=== PATIENT | male | born 1990 | race Two or more races ===

== ENCOUNTER 2018-03-16 07:33 | Emergency (ER) | payer MEDICAID ==
[~2018-03-16] VITALS: Ht 185.4 cm; Wt 59.0 kg
[2018-03-16 08:11] VITALS: BP 111/72
[2018-03-16] MEDS ORDERED: HYDROcodone-ACET 10/325MG TAB PO ONE (09:00)
[2018-03-16] MEDS ORDERED: KETOROLAC TROMETH 60MG/2ML VIAL IM ONE (09:00)
== END 2018-03-16 09:24 | disposition home or self-care (01) ==
LOC: ER 07:36
DX: S52.125A Nondisplaced fracture of head of left radius, initial encounter for closed fracture (principal); Y04.2XXA Assault by strike against or bumped into by another person, initial encounter; Y93.89 Activity, other specified; Y92.89 Other specified places as the place of occurrence of the external cause; Y99.8 Other external cause status
CPT/HCPCS: 29105; 73080; 73090; 96372; 99284; J1885

== ENCOUNTER 2023-08-03 16:01 | Emergency (ER) | payer SELFPAY ==
[~2023-08-03] VITALS: Ht 185.4 cm; Wt 86.5 kg
[~2023-08-03 16:01] MED LIST: GABA-1308 PO; IBUP-1455 PO
[2023-08-03 19:01] VITALS: TEMP 97.8
[2023-08-04 05:20] VITALS: BP 128/84; PULSE 94; RESP 16; O2SAT 97
[2023-08-05] MEDS ORDERED: ESCI20TA PO (23:34)
== END 2023-08-04 18:21 | disposition home or self-care (01) ==
LOC: ER 16:01
DX: Z09 Encounter for follow-up examination after completed treatment for conditions other than malignant neoplasm (principal); Z59.02 Unsheltered homelessness; Z79.899 Other long term (current) drug therapy

== ENCOUNTER 2023-08-05 09:54 | Emergency (ER) | payer SELFPAY ==
[~2023-08-05] VITALS: Ht 185.4 cm; Wt 86.3 kg
[2023-08-05 10:28] LABS: Basophils # (auto) 0 10 ^3/uL (0-0.2); Basophils % (auto) 0.8 % (0.0-2.0); Eosinophils # (auto) 0 10 ^3/uL (0-0.8); Eosinophils % (auto) 0.6 % (0.0-7.0); Hematocrit 41.2 % (41.0-53.0); Hemoglobin 13.7 g/dL (13.5-17.5); Lymphocytes # (auto) 1.2 10 ^3/uL (0.4-5.4); Lymphocytes % (auto) 19.9 % (10.0-50.0); Mean Corpuscular Hemoglobin 30.6 pg (28.0-32.0); Mean Corpuscular Hgb Conc. 33.3 g/dL (32.0-36.0); Mean Corpuscular Volume 91.7 fL (80.0-100.0); Monocytes # (auto) 0.6 10 ^3/uL (0-1.3); Monocytes % (auto) 10.2 % (0.0-12.0); Neutrophils # (auto) 4.1 10 ^3/uL (1.6-8.6); Neutrophils % (auto) 68.5 % (37.0-80.0); Nucleated Red Blood Cells % 0.2 %; Red Blood Cells 4.49 10^6/uL (4.5-5.90); Red Cell Distribution Width 12.9 % (11.8-14.3); White Blood Cell 5.9 10^3/uL (4.4-10.8)
[2023-08-05 10:57] LABS: Alanine Aminotransferase 64 U/L (7-40); Albumin 4.6 g/dL (3.2-4.8); Alkaline Phosphatase 63 U/L (46-116); Anion Gap 6 (5-15); Aspartate Aminotransferase 30 U/L (13-40); BUN/Creatinine Ratio 6.6 (10.0-20.0); Bilirubin, Total 0.7 mg/dL (0.2-1.0); Blood Urea Nitrogen 5 mg/dL (9-23); Calcium 9.7 mg/dL (8.5-10.1); Carbon Dioxide 26 mmol/L (20-30); Chloride 108 mmol/L (98-107); Glucose 103 mg/dL (74-106); Potassium 3.6 mmol/L (3.5-5.1); Sodium 140 mmol/L (136-145); Total Protein 7.1 g/dL (5.7-8.2)
[2023-08-05] MEDS ORDERED: SODIUM CHLORIDE 0.9% 1,000 ML IV ONE ×2 (11:30→12:30)
[2023-08-05 11:34] VITALS: PULSE 111
[2023-08-05] MEDS ORDERED: LORazepam 2MG/ML-1ML VIAL IV ONE (12:30)
[2023-08-05] MEDS ORDERED: IOHEXOL 350 MG/ML 100ML IJ ONE (12:44)
[2023-08-05 14:30] VITALS: BP 143/98
[2023-08-05 15:37] VITALS: PULSE 106; RESP 20; O2SAT 96
[2023-08-05] MEDS ORDERED: ESCI20TA PO (23:34)
== END 2023-08-05 15:18 | disposition left against medical advice (07) ==
LOC: ER 09:54
DX: R00.0 Tachycardia, unspecified (principal); R00.2 Palpitations; Z53.29 Procedure and treatment not carried out because of patient's decision for other reasons; Z79.899 Other long term (current) drug therapy
CPT/HCPCS: 36415; 80053; 83735; 84484; 85025; 85379; 93005; 96361; 96374; 99285; J2060; J7030

== ENCOUNTER 2023-08-05 17:41 | Emergency (ER) | payer SELFPAY ==
[~2023-08-05] VITALS: Ht 185.4 cm; Wt 81.4 kg
[2023-08-05 18:40] VITALS: BP 128/73; PULSE 110; RESP 16; O2SAT 98
[2023-08-05] MEDS ORDERED: KETOROLAC TROMETH 60MG/2ML VIAL IM ONE (19:00)
[2023-08-05] MEDS ORDERED: ESCI20TA PO (23:34)
== END 2023-08-05 19:27 | disposition home or self-care (01) ==
LOC: ER 17:41
DX: G62.9 Polyneuropathy, unspecified (principal); Z59.00 Homelessness unspecified; Z79.899 Other long term (current) drug therapy
CPT/HCPCS: 96372; 99283; J1885

== ENCOUNTER 2023-08-05 22:30 | Emergency (ER) | payer MEDICAID ==
[~2023-08-05] VITALS: Ht 185.4 cm; Wt 82.8 kg
[2023-08-05 22:56] VITALS: BP 118/77; RESP 16; O2SAT 98
[2023-08-05] MEDS ORDERED: LORazepam 0.5 MG TAB PO ONE (23:15)
[2023-08-05 23:26] VITALS: PULSE 116
[2023-08-05] MEDS ORDERED: ESCI20TA PO (23:34)
== END 2023-08-06 | disposition home or self-care (01) ==
LOC: ER 22:30
DX: F41.9 Anxiety disorder, unspecified (principal); R07.9 Chest pain, unspecified
CPT/HCPCS: 93005

== ENCOUNTER 2023-08-06 09:46 | Emergency (ER) | payer MEDICAID ==
[~2023-08-06] VITALS: Ht 185.4 cm; Wt 85.5 kg
[~2023-08-06 09:46] MED LIST changes: +ESCI20TA PO
[2023-08-06 12:24] VITALS: BP 118/50; PULSE 90; RESP 18; TEMP 98.7; O2SAT 97
[2023-08-06] MEDS ORDERED: diphenhdrAMINE HCL 25 MG CAP PO ONE (12:45)
== END 2023-08-06 12:53 | disposition home or self-care (01) ==
LOC: ER 09:46
DX: T78.40XA Allergy, unspecified, initial encounter (principal); Z79.1 Long term (current) use of non-steroidal anti-inflammatories (NSAID); Z79.899 Other long term (current) drug therapy; Y92.89 Other specified places as the place of occurrence of the external cause

== ENCOUNTER 2024-02-18 21:22 | Inpatient (IN) | payer MEDICAID ==
[~2024-02-18] VITALS: Ht 185.4 cm; Wt 83.7 kg
[2024-02-18 22:01] LABS: Basophils # (auto) 0 10 ^3/uL (0-0.2); Basophils % (auto) 0.3 % (0.0-2.0); Eosinophils # (auto) 0 10 ^3/uL (0-0.8); Eosinophils % (auto) 0.1 % (0.0-7.0); Hematocrit 44.4 % (41.0-53.0); Hemoglobin 15.2 g/dL (13.5-17.5); Lymphocytes # (auto) 1.2 10 ^3/uL (0.4-5.4); Lymphocytes % (auto) 11.5 % (10.0-50.0); Mean Corpuscular Hemoglobin 31.5 pg (28.0-32.0); Mean Corpuscular Hgb Conc. 34.2 g/dL (32.0-36.0); Monocytes # (auto) 0.6 10 ^3/uL (0-1.3); Monocytes % (auto) 5.9 % (0.0-12.0); Neutrophils # (auto) 8.6 10 ^3/uL (1.6-8.6); Neutrophils % (auto) 82.2 % (37.0-80.0); Nucleated Red Blood Cells % 0.1 %; Red Blood Cells 4.82 10^6/uL (4.5-5.90); Red Cell Distribution Width 13.6 % (11.8-14.3); White Blood Cell 10.5 10^3/uL (4.4-10.8)
[2024-02-18] MEDS: hydrOXYzine 25 MG TAB or CAP PO ONE (22:20)
[2024-02-18 22:23] LABS: INR 1.07 (0.9-1.15); Partial Thromboplastin Time 24.1 SEC (24.5-34.5); Prothrombin Time 11.3 sec (9.3-11.8)
[2024-02-18 22:25] LABS: Alanine Aminotransferase 23 U/L (7-40); Albumin 4.9 g/dL (3.2-4.8); Alkaline Phosphatase 56 U/L (46-116); Anion Gap 14 (5-15); Aspartate Aminotransferase 18 U/L (13-40); BUN/Creatinine Ratio 9.2 (10.0-20.0); Bilirubin, Total 0.5 mg/dL (0.2-1.0); Blood Urea Nitrogen 11 mg/dL (9-23); Calcium 9.6 mg/dL (8.7-10.4); Carbon Dioxide 19 mmol/L (20-30); Chloride 117 mmol/L (98-107); Glucose 117 mg/dL (74-106); Magnesium 1.8 mg/dL (1.6-2.6); Potassium 4.2 mmol/L (3.5-5.1); Sodium 150 mmol/L (136-145); Total Protein 7.3 g/dL (5.7-8.2)
[2024-02-19] MEDS: LABETALOL HCL 20 MG/4 ML VL IV ONE ×2 (01:56→02:28)
[2024-02-19] MEDS ORDERED: HYDROcodone-ACET 5/325MG TAB PO PRN (02:30)
[2024-02-19] MEDS ORDERED: ACETAMINOPHEN 325 MG TAB PO PRN (02:30)
[2024-02-19] MEDS ORDERED: ONDANSETRON HCL 4 MG/2 ML VIAL IV PRN (02:30)
[2024-02-19] MEDS ORDERED: METOPROLOL TARTRATE 1MG/1ML-5ML VIAL IV PRN (02:30)
[2024-02-19] MEDS ORDERED: ALPRAZolam 0.5 MG TAB PO PRN (02:30)
[2024-02-19] MEDS ORDERED: DOCUSATE SOD 100 MG CAP PO PRN (02:30)
[2024-02-19] MEDS ORDERED: NITROGLYCERIN 0.4 MG SL TAB SL PRN (02:45)
[2024-02-19] MEDS: LACTATED RINGER'S 1,000 ML IV SCH (02:50)
[2024-02-19] MEDS: ALPRAZolam 0.5 MG TAB PO ONE (03:07)
[2024-02-19 03:51] LABS: Basophils # (auto) 0.1 10 ^3/uL (0-0.2); Basophils % (auto) 0.7 % (0.0-2.0); Eosinophils # (auto) 0 10 ^3/uL (0-0.8); Hemoglobin 15.1 g/dL (13.5-17.5); Lymphocytes # (auto) 1.4 10 ^3/uL (0.4-5.4); Lymphocytes % (auto) 13.4 % (10.0-50.0); Mean Corpuscular Hemoglobin 32.1 pg (28.0-32.0); Mean Corpuscular Hgb Conc. 34.4 g/dL (32.0-36.0); Mean Corpuscular Volume 93.2 fL (80.0-100.0); Monocytes # (auto) 0.8 10 ^3/uL (0-1.3); Monocytes % (auto) 7.6 % (0.0-12.0); Neutrophils % (auto) 78.3 % (37.0-80.0); Nucleated Red Blood Cells % 0.1 %; Red Blood Cells 4.72 10^6/uL (4.5-5.90); Red Cell Distribution Width 13.8 % (11.8-14.3); White Blood Cell 10.2 10^3/uL (4.4-10.8)
[2024-02-19 04:22] LABS: Alanine Aminotransferase 22 U/L (7-40); Albumin 4.8 g/dL (3.2-4.8); Alkaline Phosphatase 54 U/L (46-116); Anion Gap 12 (5-15); Aspartate Aminotransferase 16 U/L (13-40); BUN/Creatinine Ratio 8.8 (10.0-20.0); Blood Urea Nitrogen 10 mg/dL (9-23); Calcium 9.8 mg/dL (8.7-10.4); Carbon Dioxide 26 mmol/L (20-30); Chloride 109 mmol/L (98-107); Glucose 117 mg/dL (74-106); Potassium 4.1 mmol/L (3.5-5.1); Sodium 147 mmol/L (136-145)
[2024-02-19 04:23] LABS: Bilirubin, Total 0.5 mg/dL (0.2-1.0); Total Protein 7.3 g/dL (5.7-8.2)
[2024-02-19 07:18] LABS: Amphetamine Screen, Urine Pos (NEGATIVE); Barbiturate Scree,Urine Neg (NEGATIVE); Benzodiazephine Screen, Urine Pos (NEGATIVE); Cocaine Screen, Urine Neg (NEGATIVE)
[2024-02-19 07:19] LABS: Cannabinoid Screen, Urine Neg (NEGATIVE); Opiate Scree,Urine Neg (NEGATIVE); Phencyclidine Screen, Urine Neg (NEGATIVE)
[2024-02-19 08:00] VITALS: PULSE 117; RESP 14; O2SAT 98
[2024-02-19] MEDS: MORPHINE SULFATE INJ 2 MG/ml SYRG IV PRN (08:32)
[2024-02-19 08:52] VITALS: BP 141/99; PULSE 119; RESP 16; RESP 18; TEMP 98.6; O2SAT 99
[2024-02-19] MEDS: LACTULOSE 20Gm/30ML SOLN PO ONE (11:15)
[2024-02-19 13:00] VITALS: BP 146/101; PULSE 119; RESP 19; TEMP 97.7; O2SAT 99
[2024-02-19 13:30] VITALS: BP 152/108; PULSE 129; O2SAT 100
[2024-02-19] MEDS: hydrALAZINE HCL 20 MG/ML VL IV PRN (13:36)
[2024-02-19] MEDS ORDERED: chlordiazePOXIDE HCL 25 MG CAP PO PRN (13:45)
[2024-02-19] MEDS: METOPROLOL TARTRATE 25 MG TAB PO ONE (14:06)
[2024-02-19] MEDS: THIAMINE HCL 100 MG TAB PO ONE (14:14)
[2024-02-19] MEDS: FAMOTIDINE 20 MG TAB PO ONE (14:14)
[2024-02-19] MEDS ORDERED: FOLIC ACID 1 MG, MAGNESIUM SULF SDV 50% 8 MEQ, MULTIPLE VITAMIN 10 ML, THIAMINE INJ 100... INJ SCH (18:00)
[2024-02-19] MEDS ORDERED: METOPROLOL TARTRATE 25 MG TAB PO SCH (22:00)
[2024-02-19] MEDS ORDERED: FAMOTIDINE 20 MG TAB PO SCH (22:00)
[2024-02-20] MEDS ORDERED: THIAMINE HCL 100 MG TAB PO SCH (10:00)
== END 2024-02-19 14:14 | disposition left against medical advice (07) | DRG 247 ==
LOC: ER 21:22 → EDBD 21:22 → TELE 02-19 02:37 → TELE-E-ADS 02-19 02:37
PROVIDERS: ADMIT Internal Medicine; ATTEND Internal Medicine
DX: K56.41 Fecal impaction (principal); E87.0 Hyperosmolality and hypernatremia; I24.9 Acute ischemic heart disease, unspecified; Z53.29 Procedure and treatment not carried out because of patient's decision for other reasons; F41.9 Anxiety disorder, unspecified; I10 Essential (primary) hypertension; Z79.899 Other long term (current) drug therapy
CPT/HCPCS: 36415; 71045; 74176; 80053; 80307; 80320; 83735; 83880; 84484; 85025; 85610; 85730; 93005; 96361; 96374; 96375; 96376; G0378

== ENCOUNTER 2024-02-19 14:08 | Emergency (ER) | payer MEDICAID ==
[~2024-02-19] VITALS: Ht 185.4 cm; Wt 77.0 kg
[2024-02-19 14:36] LABS: Basophils # (auto) 0.1 10 ^3/uL (0-0.2); Basophils % (auto) 0.7 % (0.0-2.0); Eosinophils # (auto) 0 10 ^3/uL (0-0.8); Eosinophils % (auto) 0.3 % (0.0-7.0); Hematocrit 44.6 % (41.0-53.0); Hemoglobin 15.3 g/dL (13.5-17.5); Lymphocytes # (auto) 2.2 10 ^3/uL (0.4-5.4); Lymphocytes % (auto) 24.3 % (10.0-50.0); Mean Corpuscular Hemoglobin 31.7 pg (28.0-32.0); Mean Corpuscular Hgb Conc. 34.3 g/dL (32.0-36.0); Mean Corpuscular Volume 92.6 fL (80.0-100.0); Monocytes # (auto) 0.7 10 ^3/uL (0-1.3); Monocytes % (auto) 7.8 % (0.0-12.0); Neutrophils % (auto) 66.9 % (37.0-80.0); Red Blood Cells 4.82 10^6/uL (4.5-5.90); Red Cell Distribution Width 14.1 % (11.8-14.3)
[2024-02-19 14:58] LABS: Alanine Aminotransferase 20 U/L (7-40); Alkaline Phosphatase 56 U/L (46-116); Anion Gap 10 (5-15); BUN/Creatinine Ratio 9.3 (10.0-20.0); Blood Urea Nitrogen 10 mg/dL (9-23); Calcium 9.9 mg/dL (8.7-10.4); Carbon Dioxide 26 mmol/L (20-30); Chloride 107 mmol/L (98-107); Glucose 109 mg/dL (74-106); Potassium 3.2 mmol/L (3.5-5.1); Sodium 143 mmol/L (136-145)
[2024-02-19 14:59] LABS: Albumin 4.7 g/dL (3.2-4.8); Aspartate Aminotransferase 16 U/L (13-40); Bilirubin, Total 0.9 mg/dL (0.2-1.0); Total Protein 7.3 g/dL (5.7-8.2)
[2024-02-19 18:00] VITALS: BP 148/94; PULSE 100; RESP 16; TEMP 97.8; O2SAT 100
[2024-02-19 18:18] VITALS: PULSE 102
[2024-02-19] MEDS: diphenhdrAMINE HCL 25 MG CAP PO ONE (18:43)
== END 2024-02-19 19:10 | disposition home or self-care (01) ==
LOC: ER 14:08
DX: F41.9 Anxiety disorder, unspecified (principal); R00.2 Palpitations; F19.10 Other psychoactive substance abuse, uncomplicated; Z79.899 Other long term (current) drug therapy
CPT/HCPCS: 36415; 71045; 80053; 84484; 85025; 93005

== ENCOUNTER 2024-02-19 19:29 | Emergency (ER) | payer MEDICAID ==
[~2024-02-19] VITALS: Ht 185.4 cm; Wt 80.5 kg
[2024-02-19] MEDS: OLANZapine 5 MG TAB PO ONE (21:02)
[2024-02-19 21:05] VITALS: BP 139/86; PULSE 87; RESP 19; TEMP 97.9; O2SAT 100
== END 2024-02-19 21:07 | disposition home or self-care (01) ==
LOC: ER 19:29
DX: F41.9 Anxiety disorder, unspecified (principal); F15.10 Other stimulant abuse, uncomplicated; F19.10 Other psychoactive substance abuse, uncomplicated; Z59.00 Homelessness unspecified

== ENCOUNTER 2024-02-20 12:21 | Emergency (ER) | payer MEDICAID ==
[~2024-02-20] VITALS: Ht 185.4 cm; Wt 77.6 kg
[2024-02-20 13:13] LABS: Basophils # (auto) 0 10 ^3/uL (0-0.2); Basophils % (auto) 0.4 % (0.0-2.0); Eosinophils # (auto) 0.1 10 ^3/uL (0-0.8); Eosinophils % (auto) 1.5 % (0.0-7.0); Hematocrit 46.9 % (41.0-53.0); Hemoglobin 15.7 g/dL (13.5-17.5); Lymphocytes # (auto) 2.1 10 ^3/uL (0.4-5.4); Lymphocytes % (auto) 31.8 % (10.0-50.0); Mean Corpuscular Hemoglobin 31.7 pg (28.0-32.0); Mean Corpuscular Hgb Conc. 33.6 g/dL (32.0-36.0); Mean Corpuscular Volume 94.4 fL (80.0-100.0); Monocytes # (auto) 0.6 10 ^3/uL (0-1.3); Monocytes % (auto) 8.7 % (0.0-12.0); Neutrophils # (auto) 3.9 10 ^3/uL (1.6-8.6); Neutrophils % (auto) 57.6 % (37.0-80.0); Nucleated Red Blood Cells % 0.1 %; Red Blood Cells 4.97 10^6/uL (4.5-5.90); Red Cell Distribution Width 14.1 % (11.8-14.3); White Blood Cell 6.7 10^3/uL (4.4-10.8)
[2024-02-20 13:52] LABS: Chloride 107 mmol/L (98-107); Potassium 3.9 mmol/L (3.5-5.1); Sodium 140 mmol/L (136-145)
[2024-02-20 13:53] LABS: Anion Gap 9 (5-15); Carbon Dioxide 24 mmol/L (20-30)
[2024-02-20 13:58] LABS: BUN/Creatinine Ratio 10.1 (10.0-20.0); Blood Urea Nitrogen 10 mg/dL (9-23); Glucose 77 mg/dL (74-106)
[2024-02-20 13:59] LABS: Blood Alcohol < 3.0 mg/dL (<10)
[2024-02-20 15:03] VITALS: BP 124/78; TEMP 97.5
[2024-02-20 15:34] VITALS: PULSE 72; RESP 18; O2SAT 100
[2024-02-20] MEDS: traMADol HCL 50 MG TAB PO ONE (15:50)
[2024-02-20 16:11] LABS: Amphetamine Screen, Urine Pos (NEGATIVE); Barbiturate Scree,Urine Neg (NEGATIVE); Benzodiazephine Screen, Urine Neg (NEGATIVE); Cannabinoid Screen, Urine Neg (NEGATIVE); Cocaine Screen, Urine Neg (NEGATIVE); Opiate Scree,Urine Neg (NEGATIVE); Phencyclidine Screen, Urine Neg (NEGATIVE)
[2024-02-21] MEDS ORDERED: ALPR1TAB7 PO (00:29)
== END 2024-02-20 15:55 | disposition home or self-care (01) ==
LOC: ER 12:21
DX: R07.89 Other chest pain (principal); F41.9 Anxiety disorder, unspecified; R00.2 Palpitations; F15.10 Other stimulant abuse, uncomplicated; Z79.899 Other long term (current) drug therapy
CPT/HCPCS: 36415; 80048; 80307; 80320; 84484; 85025

== ENCOUNTER 2024-02-20 21:41 | Emergency (ER) | payer MEDICAID ==
[~2024-02-20] VITALS: Ht 185.4 cm; Wt 83.9 kg
[2024-02-21] MEDS ORDERED: ALPR1TAB7 PO (00:29)
[2024-02-21] MEDS: ACETAMINOPHEN 325 MG TAB PO ONE (00:58)
[2024-02-21] MEDS: LORazepam 0.5 MG TAB PO ONE (00:59)
[2024-02-21 01:00] VITALS: BP 110/73; PULSE 64; RESP 18; TEMP 98; O2SAT 64
== END 2024-02-21 01:35 | disposition home or self-care (01) ==
LOC: ER 21:41
DX: F41.9 Anxiety disorder, unspecified (principal); F15.90 Other stimulant use, unspecified, uncomplicated

== ENCOUNTER 2024-02-21 18:39 | Emergency (ER) | payer MEDICAID ==
[~2024-02-21] VITALS: Ht 185.4 cm; Wt 79.5 kg
[~2024-02-21 18:39] MED LIST changes: +ALPR1TAB7 PO
[2024-02-21 18:59] LABS: Basophils # (auto) 0 10 ^3/uL (0-0.2); Basophils % (auto) 0.5 % (0.0-2.0); Eosinophils # (auto) 0.1 10 ^3/uL (0-0.8); Eosinophils % (auto) 1.8 % (0.0-7.0); Hemoglobin 14.8 g/dL (13.5-17.5); Lymphocytes # (auto) 1.9 10 ^3/uL (0.4-5.4); Lymphocytes % (auto) 27.8 % (10.0-50.0); Mean Corpuscular Hemoglobin 31.7 pg (28.0-32.0); Mean Corpuscular Hgb Conc. 34.5 g/dL (32.0-36.0); Monocytes # (auto) 0.5 10 ^3/uL (0-1.3); Monocytes % (auto) 7.4 % (0.0-12.0); Neutrophils # (auto) 4.2 10 ^3/uL (1.6-8.6); Neutrophils % (auto) 62.5 % (37.0-80.0); Nucleated Red Blood Cells % 0.3 %; Red Blood Cells 4.67 10^6/uL (4.5-5.90); Red Cell Distribution Width 13.5 % (11.8-14.3); White Blood Cell 6.8 10^3/uL (4.4-10.8)
[2024-02-21 19:14] LABS: INR 0.99 (0.9-1.15); Partial Thromboplastin Time 29.1 SEC (24.5-34.5); Prothrombin Time 10.5 sec (9.3-11.8)
[2024-02-21 19:19] LABS: Alanine Aminotransferase 22 U/L (7-40); Albumin 4.4 g/dL (3.2-4.8); Alkaline Phosphatase 61 U/L (46-116); Anion Gap 10 (5-15); Aspartate Aminotransferase 15 U/L (13-40); BUN/Creatinine Ratio 12.1 (10.0-20.0); Bilirubin, Total 0.4 mg/dL (0.2-1.0); Blood Urea Nitrogen 12 mg/dL (9-23); Calcium 9.6 mg/dL (8.7-10.4); Carbon Dioxide 25 mmol/L (20-30); Chloride 106 mmol/L (98-107); Glucose 95 mg/dL (74-106); Magnesium 1.9 mg/dL (1.6-2.6); Sodium 141 mmol/L (136-145); Total Protein 6.6 g/dL (5.7-8.2)
[2024-02-21] MEDS: LORazepam 0.5 MG TAB PO ONE (21:01)
[2024-02-21 21:02] VITALS: BP 115/69; PULSE 94; RESP 17; TEMP 98.4; O2SAT 95
[2024-02-21 23:02] LABS: Amphetamine Screen, Urine Pos (NEGATIVE); Barbiturate Scree,Urine Neg (NEGATIVE); Benzodiazephine Screen, Urine Neg (NEGATIVE); Cocaine Screen, Urine Neg (NEGATIVE); Opiate Scree,Urine Neg (NEGATIVE); Phencyclidine Screen, Urine Neg (NEGATIVE)
[2024-02-22 00:19] LABS: Cannabinoid Screen, Urine Neg (NEGATIVE)
== END 2024-02-21 22:19 | disposition home or self-care (01) ==
LOC: ER 18:39
DX: R07.89 Other chest pain (principal); F41.9 Anxiety disorder, unspecified; F10.10 Alcohol abuse, uncomplicated; F15.10 Other stimulant abuse, uncomplicated; Z79.899 Other long term (current) drug therapy
CPT/HCPCS: 36415; 71045; 80053; 80307; 83735; 83880; 84443; 84484; 85025; 85379; 85610; 85730; 93005

== ENCOUNTER 2024-02-22 10:44 | Inpatient (IN) | payer MEDICAID ==
[~2024-02-22] VITALS: Ht 185.4 cm; Wt 86.4 kg
[2024-02-22 11:40] LABS: Chloride 106 mmol/L (98-107); Potassium 3.5 mmol/L (3.5-5.1); Sodium 140 mmol/L (136-145)
[2024-02-22 11:41] LABS: Anion Gap 4 (5-15); Carbon Dioxide 30 mmol/L (20-30)
[2024-02-22 11:42] LABS: Basophils # (auto) 0 10 ^3/uL (0-0.2); Basophils % (auto) 0.4 % (0.0-2.0); Calcium 9.6 mg/dL (8.7-10.4); Eosinophils # (auto) 0 10 ^3/uL (0-0.8); Eosinophils % (auto) 0.7 % (0.0-7.0); Hematocrit 41.1 % (41.0-53.0); Hemoglobin 14.1 g/dL (13.5-17.5); Lymphocytes # (auto) 1.2 10 ^3/uL (0.4-5.4); Lymphocytes % (auto) 26.3 % (10.0-50.0); Mean Corpuscular Hemoglobin 31.9 pg (28.0-32.0); Mean Corpuscular Hgb Conc. 34.4 g/dL (32.0-36.0); Mean Corpuscular Volume 92.6 fL (80.0-100.0); Monocytes # (auto) 0.5 10 ^3/uL (0-1.3); Monocytes % (auto) 11.1 % (0.0-12.0); Neutrophils # (auto) 2.9 10 ^3/uL (1.6-8.6); Neutrophils % (auto) 61.5 % (37.0-80.0); Nucleated Red Blood Cells % 0.1 %; Red Blood Cells 4.44 10^6/uL (4.5-5.90); Red Cell Distribution Width 13.4 % (11.8-14.3); White Blood Cell 4.7 10^3/uL (4.4-10.8)
[2024-02-22 11:46] LABS: BUN/Creatinine Ratio 9.7 (10.0-20.0); Blood Urea Nitrogen 9 mg/dL (9-23); Glucose 119 mg/dL (74-106)
[2024-02-22 12:31] VITALS: PULSE 88; RESP 16; O2SAT 100
[2024-02-22] MEDS ORDERED: HYDROcodone-ACET 5/325MG TAB PO PRN (14:45)
[2024-02-22] MEDS ORDERED: ONDANSETRON HCL 4 MG/2 ML VIAL IV PRN (14:45)
[2024-02-22] MEDS ORDERED: ACETAMINOPHEN 325 MG TAB PO PRN (14:45)
[2024-02-22] MEDS ORDERED: DOCUSATE SOD 100 MG CAP PO PRN (14:45)
[2024-02-22] MEDS: ENOXAPARIN SOD 100 MG/1 ML SYRINGE SC ONE (15:24)
[2024-02-22] MEDS ORDERED: NITROGLYCERIN 0.4 MG SL TAB SL PRN (15:30)
[2024-02-22] MEDS ORDERED: MORPHINE SULFATE INJ 2 MG/ml SYRG IV PRN (15:30)
[2024-02-22 18:36] VITALS: BP 134/87; PULSE 93; RESP 16; TEMP 97.5; O2SAT 99
[2024-02-22] MEDS ORDERED: SODIUM CHLOR 0.9% PF (SALINE LOCK) 10ML VIAL/SYR IV SCH (22:00)
== END 2024-02-22 21:40 | disposition left against medical advice (07) | DRG 144 ==
LOC: ER 10:44 → TELE 15:18
PROVIDERS: ADMIT Nurse Practitioner Family; ATTEND Nurse Practitioner Family
DX: R06.03 Acute respiratory distress (principal); F17.210 Nicotine dependence, cigarettes, uncomplicated; J98.4 Other disorders of lung; Z53.29 Procedure and treatment not carried out because of patient's decision for other reasons; Z79.899 Other long term (current) drug therapy; R07.9 Chest pain, unspecified
CPT/HCPCS: 36415; 71275; 80048; 83880; 85025; 85379; G0378

== ENCOUNTER 2024-02-25 20:21 | Emergency (ER) | payer MEDICAID ==
[~2024-02-25] VITALS: Ht 185.4 cm; Wt 87.2 kg
[2024-02-25 21:02] VITALS: BP 124/64; PULSE 121; RESP 16; TEMP 98.8; O2SAT 98
[2024-02-26] MEDS ORDERED: AUG875T PO (00:01)
[2024-02-26] MEDS: DexAMETHasone SOD PHOS 10MG/1ML VIAL INJ IM ONE (00:18)
== END 2024-02-26 00:15 | disposition home or self-care (01) ==
LOC: ER 20:21
DX: R59.0 Localized enlarged lymph nodes (principal); J06.9 Acute upper respiratory infection, unspecified; F15.10 Other stimulant abuse, uncomplicated
CPT/HCPCS: 96372; 99283; J1100

== ENCOUNTER 2024-07-02 06:18 | Inpatient (IN) | payer MEDICAID ==
[~2024-07-02] VITALS: Ht 185.4 cm; Wt 86.0 kg
[~2024-07-02 06:18] MED LIST changes: +AUG875T PO
--- NOTE | 2024-07-02 07:06 | ED.PDOC ---
HPI Comments 33M BIBA w/ no prior Hx associated to the c/c of CP. Pt reports that he woke up this morning w/ SOB and CP. Pt notes that it did happen in the past and was told to go see a prospecting driller helper but the pt did not follow up. PMHx of Anxiety. Social Hx of Occasional alcohol use, but denies tobacco and substance use.Denies chills, fever, N/V/D or other associated symptoms, modifiers, or recent injuries at this time. Chief Complaint: Chest Pain Time Seen by MD: 06:25 Primary Care Provider: Unknown Reviewed Notes: Nurses Notes, Project Finance Analyst Notes, Medications, Allergies Allergies: Coded Allergies: No Known Drug Allergy (Verified Allergy, Unknown, 08/01/23) Home Meds Active Scripts Amoxicillin & Pot Clavulanate (AUGMENTIN TABLET) 875 Mg Tb, 875 MG PO BID for 10 Days, #20 TAB Prov:DANUTA WALLER GUIDANCE SECRETARY 02/26/24 Alprazolam (Alprazolam) 1 Mg Tab, 1 TAB PO DAILY, #10 TAB Prov:FLORECITA CUNNINGHAM PAC 02/21/24 Escitalopram Oxalate (Lexapro) 20 Mg Tab, 1 TAB PO DAILY, #30 TAB Prov:MAGGIE LOPEZ DO 08/05/23 Gabapentin (Gabapentin) 100 Mg Cap, 300 CAP PO TID for 30 Days, #90 CAP 0 Refills Prov:NUBIA PEDRAZA TRUST ACCOUNTS SUPERVISOR 08/02/23 Ibuprofen Micronized (Ibuprofen) 800 Mg Tab, 800 MG PO Q8HP PRN, #20 TAB Prov:JEFFRY YARBROUGH PAC 08/01/23 Information Source: Patient, Emergency Med Personnel Mode of Arrival: EMS Severity: Moderate Timing: Minutes Duration: Since onset, Minutes Prehospital treatment: None Location: Substernal Radiation: No Radiation Quality: Aching Cardiac Risk Factors: None PE Risk Factors: None History of: None Associated Signs and Symptoms: SOB, None Past Medical History PAST MEDICAL HISTORY: Anxiety Surgical History: Denies all surgeries Family History Family History: Reviewed,noncontributory to illness, Unknown Social History Smoker: Non-Smoker Alcohol: Occasionally Drugs: Unknown Lives In: Home Constitutional: denies: chills, diaphoresis, fatigue, fever, malaise, sweats, weakness, others EENTM: denies: blurred vision, double vision, ear bleeding, ear discharge, ear drainage, ear pain, ear ringing, eye pain, eye redness, hearing loss, mouth pain, mouth swelling, nasal discharge, nose bleeding, nose congestion, nose pain, photophobia, tearing, throat pain, throat swelling, voice changes, others Respiratory: reports: SOB at rest, shortness of breath; denies: cough, hemoptysis, orthopnea, SOB with excertion, stridor, wheezing, others Cardiovascular: reports: chest pain; denies: dizzy spells, diaphoresis, Dyspnea on exertion, edema, irregular heart beat, left arm pain, lightheadedness, palpitations, PND, syncope, others Gastrointestinal: denies: abdomen distended, abdominal pain, blood streaked bowels, constipated, diarrhea, dysphagia, difficulty swallowing, hematemesis, melena, nausea, poor appetite, poor fluid intake, rectal bleeding, rectal pain, vomiting, others Genitourinary: denies: burning, dysuria, flank pain, frequency, hematuria, incontinence, penile discharge, penile sore, pain, testicle pain, testicle swelling, urgency, others Neurological: denies: dizziness, fainting, headache, left sided numbness, left sided weakness, numbness, paresthesia, pre-existing deficit, right sided numbness, right sided weakness, seizure, speech problems, tingling, tremors, weakness, others Musculoskeletal: denies: back pain, gout, joint pain, joint swelling, muscle pain, muscle stiffness, neck pain, others Integumetry: denies: bruises, change in color, change in hair/nails, dryness, laceration, lesions, lumps, rash, wounds, others Allergic/Immunocompromised: denies: Difficulty Healing, Frequent Infections, Hives, Itching, others Hematologic/Lymphatic: denies: anemia, blood clots, easy bleeding, easy bruising, swollen glands, others Endocrine: denies: excessive hunger, excessive sweating, excessive thirst, excessive urination, flushing, intolerance to cold, intolerance to heat, unexplained weight gain, unexplained weight loss, others Psychiatric: denies: anxiety, bipolar disorder, depression, hopeless, panic disorder, schizophrenia, sleepless, suicidal, others All Other Systems: Reviewed and Negative Physical Exam General Appearance: Moderate Distress, Normal HEENT: Normal ENT Inspection, Pharynx Normal, TMs Normal Neck: Full Range of Motion, Non-Tender, Normal, Normal Inspection Respiratory: Chest Non-Tender, Lungs Clear, No Accessory Muscle Use, No Respiratory Distress, Normal Breath Sounds Cardiovascular: No Edema, No JVD, No Murmur, No Gallop, Normal Peripheral Pulses, Tachycardia Breast Exam: Deferred Gastrointestinal: No Organomegaly, Non Tender, No Pulsatile Mass, Normal Bowel Sounds, Soft Genitalia: Deferred Pelvic: Deferred Rectal: Deferred Extremities: No calf tenderness, Normal capillary refill, Normal inspection, Normal range of motion, Non-tender, No pedal edema Musculoskeletal : Apperance: Normal Neurologic: Alert, sheet writer II-XII nml as Tested, No Motor Deficits, Normal Affect, Normal Mood, No Sensory Deficits Cerebellar Function: Normal Reflexes: Normal Skin: Dry, Normal Color, Warm Peripheral Pulses: 3+ Radial (R), 3+ Radial (L) Lymphatic: No Adenopathy Was a procedure done? Was a procedure done?: No CP Differential Dx Differential Diagnosis: A-fib, A-Flutter, Angina, Anxiety / Panic Attack, Atrial Dysrhythmia, Electrolyte Disorder X-Ray, Labs, Meds, VS Vital Signs Date Time Temp Pulse Resp B/P (MAP) Pulse Ox O2 Delivery O2 Flow Rate FiO2 07/02/24 06:37 167 07/02/24 06:18 99.3 150 20 147/83 (104) 98 Patient alert. Complaining of chest discomfort. Tachycardia. Saturation pristine on room air. Mild fever. Able to take deep breaths. Was given aspirin. Possibly will need echocardiogram. He does not take care himself. Denies use of drugs. Reviewed his history. Explained to the patient. Continue cardiac monitoring. Time of 1ST Reevaluation: 06:55 Reevaluation 1ST: Unchanged Patient Education/Counseling: Diagnosis, Treatment, Prognosis Family Education/Counseling: No Family Present Departure 1 Departure Time of Disposition: 07:18 Impression: Primary Impression: Chest pain of unknown etiology Additional Impression: Sinus tachycardia Disposition: ADMITTED INPATIENT Admit to: Med Surg Condition: Guarded Critical Care Note Critical Care Time?: Yes (45 min-critical care time only) Stability Stability form required: No Heart Score Heart Score: Heart Score Response (Comments) Value History Slightly Suspicious 0 EKG Normal 0 Age <45 0 Risk Factors No known risk factors 0 Troponin Normal limit 0 Total 0 I personally scribed for JASPREET APONTE MD ([email or web address]) on 07/02/24 at 07:06. Electronically submitted by Alphonse Quintana ([email or web address]). JASPREET APONTE MD Jul 02, 2024 07:06
[2024-07-02] MEDS: ASPirin 325 MG TAB PO ONE (07:20)
--- NOTE | 2024-07-02 07:37 | ECG ---
[facility] Test Date: 2024-07-02 Test Time: 07:35:56 Pat Name: ANTHONY KENNEY Department: ED Room: Gender: M Customer Service And Sales Consultant: : 1990 Requested By: JASPREET APONTE Order Number: [id number] Reading MD: Measurements Intervals [place] Rate: 151 P: 77 NH: 120 QRS: 22 QRSD: 91 T: -53 QT: 300 QTc: 476 Interpretive Statements Sinus tachycardia Paired ventricular premature complexes Borderline T abnormalities, inferior leads Please click the below link to view image of tracing.
[2024-07-02 08:03] LABS: Basophils # (auto) 0 10 ^3/uL (0-0.2); Basophils % (auto) 0.4 % (0.0-2.0); Eosinophils # (auto) 0 10 ^3/uL (0-0.8); Hematocrit 46.5 % (41.0-53.0); Hemoglobin 15.7 g/dL (13.5-17.5); Lymphocytes # (auto) 1.2 10 ^3/uL (0.4-5.4); Lymphocytes % (auto) 13.3 % (10.0-50.0); Mean Corpuscular Hemoglobin 31.2 pg (28.0-32.0); Mean Corpuscular Hgb Conc. 33.8 g/dL (32.0-36.0); Mean Corpuscular Volume 92.1 fL (80.0-100.0); Monocytes # (auto) 0.8 10 ^3/uL (0-1.3); Monocytes % (auto) 8.2 % (0.0-12.0); Neutrophils # (auto) 7.3 10 ^3/uL (1.6-8.6); Neutrophils % (auto) 78.1 % (37.0-80.0); Platelet Count (auto) 266 10^3/uL (140-450); Red Blood Cells 5.05 10^6/uL (4.5-5.90); Red Cell Distribution Width 13.2 % (11.8-14.3); White Blood Cell 9.3 10^3/uL (4.4-10.8)
[2024-07-02 08:06] LABS: Chloride 105 mmol/L (98-107); Potassium 3.6 mmol/L (3.5-5.1); Sodium 141 mmol/L (136-145)
[2024-07-02 08:07] LABS: Anion Gap 10 (5-15); Calcium 10.1 mg/dL (8.7-10.4); Carbon Dioxide 26 mmol/L (20-31)
[2024-07-02 08:12] LABS: BUN/Creatinine Ratio 6.1 (10.0-20.0)
[2024-07-02 08:13] LABS: Blood Urea Nitrogen 7 mg/dL (9-23); Glucose 145 mg/dL (74-106)
[2024-07-02] MEDS: ONDANSETRON HCL 4 MG/2 ML VIAL IV ONE (08:41)
[2024-07-02] MEDS: MORPHINE SULFATE 4 MG/ML SYR/VIAL IV ONE (08:42)
[2024-07-02] MEDS ORDERED: ACETAMINOPHEN 325 MG TAB PO PRN ×2 (10:15→11:30)
[2024-07-02] MEDS ORDERED: ENOXAPARIN SOD 100 MG/1 ML SYRINGE SC ONE (10:15)
[2024-07-02] MEDS ORDERED: NITROGLYCERIN 0.4 MG SL TAB SL PRN ×2 (10:15→11:30)
[2024-07-02] MEDS ORDERED: SODIUM CHLORIDE 0.9% 1,000 ML IV SCH (10:15)
[2024-07-02] MEDS ORDERED: HYDROcodone-ACET 5/325MG TAB PO PRN (10:15)
[2024-07-02] MEDS ORDERED: DOCUSATE SOD 100 MG CAP PO PRN ×2 (10:15→11:30)
[2024-07-02] MEDS ORDERED: MORPHINE SULFATE INJ 2 MG/ml SYRG IV PRN ×4 (10:15→11:30)
[2024-07-02] MEDS ORDERED: ONDANSETRON HCL 4 MG/2 ML VIAL IV PRN ×2 (10:15→11:30)
--- NOTE | 2024-07-02 11:15 | DVHHP2 ---
History of Present Illness Reason for Visit: Chest pain and nausea History of Present Illness Zane Leggett is a 33-year-old male with history of anxiety who presents to the ED for chest pain, nausea, and vomiting x1 day. Patient reports chest pressure 8/10 that is constant and radiates to his stomach and throat. Patient reports that he was at his mom's house last night when this started to happe but states that he is homeless. Patient denies shortness of breath, chills, fever, diarrhea, headache, lightheadedness, and dizziness. Psych: Anxiety Past Surgical History Left Elbow fracture 2018 Family History: None Smoke: No ALCOHOL: occassional Drugs: None Lives: Homeless Domestic Violence: Neg Review of Systems Constitutional: No: Fever, Chills, Sweats, Weakness, Malaise, Other Eyes: No: Pain, Vision change, Conjunctivae inflammation, Eyelid inflammation, Other, Redness ENT: No: Ear pain, Ear discharge, Nose pain, Nose discharge, Nose congestion, Mouth pain, Mouth swelling, Throat pain, Throat swelling, Other Respiratory: No: Cough, Dry, Shortness of breath, SOB with excertion, Wheezing, Hemoptysis, Pleuritic Pain, Sputum, Wheezing, Other Cardiovascular: Chest Pain; No: Palpitations, Orthopnea, Paroxysmal Noc. Dyspnea, Edema, Lt Headedness, Other Gastrointestinal: Nausea, Vomiting Genitourinary: No Dysuria, No Frequency, No Incontinence, No Hematuria, No Retention, No Other Musculoskeletal: No: other, neck pain, shoulder pain, arm pain, back pain, hand pain, leg pain, foot pain Skin: No: Rash, Lesions, Jaundice, Bruising, Other Neurological: No: Weakness, Numbness, Incoordination, Change in speech, Confusion, Seizures, Other Allergies: Coded Allergies: No Known Drug Allergy (Verified Allergy, Unknown, 08/01/23) Exam Vital Signs Vital Signs Date Time Temp Pulse Resp B/P (MAP) Pulse Ox O2 Delivery O2 Flow Rate FiO2 07/02/24 09:18 60 16 123/60 07/02/24 07:35 98.0 98 98.0 General Appearance: Alert, Oriented X3, Cooperative, No acute distress HEENT: Atraumatic, PERRLA, EOMI, Mucous membr. moist/pink Respiratory: Clear to auscultation, Normal air movement Cardiovascular: Regular rate, Normal S1, Normal S2, No murmurs Abdominal: Normal bowel sounds, Soft, No tenderness, No hepatospenomegaly, No masses Extremities: No clubbing, No cyanosis, No edema, Normal pulses, No tenderness/swelling Skin: No rashes, No breakdown, No significant lesion Neuro: Normal gait, Normal speech, Strength at 5/5 X4 ext, Normal tone, Sensation intact Psych/Mental Status: Mental status NL, Mood NL Labs/Xrays Labs Test 07/02/24 07:48 Range/Units White Blood Count 9.3 4.4-10.8 10^3/uL Red Blood Count 5.05 4.5-5.90 10^6/uL Hemoglobin 15.7 13.5-17.5 g/dL Hematocrit 46.5 41.0-53.0 % Mean Corpuscular Volume 92.1 80.0-100.0 fL Mean Corpuscular Hemoglobin 31.2 28.0-32.0 pg Mean Corpuscular Hemoglobin Concent 33.8 32.0-36.0 g/dL Red Cell Distribution Width 13.2 11.8-14.3 % Platelet Count 266 140-450 10^3/uL Mean Platelet Volume 8.7 6.9-10.8 fL Neutrophils (%) (Auto) 78.1 37.0-80.0 % Lymphocytes (%) (Auto) 13.3 10.0-50.0 % Monocytes (%) (Auto) 8.2 0.0-12.0 % Eosinophils (%) (Auto) 0.0 0.0-7.0 % Basophils (%) (Auto) 0.4 0.0-2.0 % Neutrophils # (Auto) 7.3 1.6-8.6 10 ^3/uL Lymphocytes # (Auto) 1.2 0.4-5.4 10 ^3/uL Monocytes # (Auto) 0.8 0-1.3 10 ^3/uL Eosinophils # (Auto) 0 0-0.8 10 ^3/uL Basophils # (Auto) 0 0-0.2 10 ^3/uL Nucleated Red Blood Cells 0.0 % D-Dimer, Quantitative 0.71 H 0.0-0.49 mg/L FEU Sodium Level 141 136-145 mmol/L Potassium Level 3.6 3.5-5.1 mmol/L Chloride Level 105 98-107 mmol/L Carbon Dioxide Level 26 20-31 mmol/L Anion Gap 10 5-15 Blood Urea Nitrogen 7 L 9-23 mg/dL Creatinine 1.15 0.700-1.30 mg/dL Glomerular Filtration Rate Calc 87 >90 mL/min BUN/Creatinine Ratio 6.1 L 10.0-20.0 Serum Glucose 145 H 74-106 mg/dL Calcium Level 10.1 8.7-10.4 mg/dL Troponin I High Sensitivity 28 </=54 ng/L CHEST RADIOGRAPH Indication: chest pain Technique: Single frontal view of the chest was obtained COMPARISON: XY CHEST PORTABLE on DOS: 02/21/24 FINDINGS: Lines and Tubes: None Lungs: Clear Pleura: No effusion. No pneumothorax. Cardiomediastinal contours: Unremarkable Bones: Unremarkable IMPRESSION: No evidence of acute cardiopulmonary disease. CTA Chest with intravenous contrast INDICATION: R/O PE COMPARISON: CT CT ANGIO CHEST CONTRAST on DOS: 02/22/24 Findings: Pulmonary artery: No pulmonary embolism Lower neck: Normal thyroid. Lungs: No focal consolidation, pleural effusion or pneumothorax. Heart/Vascular Structures: Normal heart size. No pericardial effusion. Lymph Nodes: No adenopathy Pleura: No pleural effusion or significant pneumothorax. Musculoskeletal: No acute osseous abnormality. Soft tissues: Normal. Upper abdomen: Limited portions of the upper abdomen are unremarkable. IMPRESSION: 1. No pulmonary embolism. 2. No acute thoracic finding. Assessment/Plan Assessment/Plan # Atypical chest pain likely d/t anxiety #Ruled out PE ECHO D-dimer CXR CTA Chest negative HgbA1C TSH Lipid panel edge sealer labs EKG in am Lovenox UDS IVf magnesium level Admit to tele # Anxiety xanax lexapro gabapentin Outpatient psych evaluation #ETOH use alcohol level Counseled on alcohol use DVT ppx Discussed plan with patient and nurse Home medications reconciled Plan discussed with: Patient Date of Service: Jul 02, 2024 Billing Provider: TRISTON KAUFMAN Common Visit Codes: [id number] INP/OBS CARE (MOD) TRISTON KAUFMAN Jul 02, 2024 11:15
[2024-07-02 11:40] LABS: Blood Alcohol 3.3 mg/dL (<10)
--- NOTE | 2024-07-02 11:55 | DVH ---
CHEST RADIOGRAPH Indication: chest pain Technique: Single frontal view of the chest was obtained COMPARISON: XY CHEST PORTABLE on DOS: 02/21/24 FINDINGS: Lines and Tubes: None Lungs: Clear Pleura: No effusion. No pneumothorax. Cardiomediastinal contours: Unremarkable Bones: Unremarkable IMPRESSION: No evidence of acute cardiopulmonary disease.
[2024-07-02] MEDS: ENOXAPARIN SOD 100 MG/1 ML SYRINGE SC ONE (12:41)
[2024-07-02] MEDS: HYDROcodone-ACET 5/325MG TAB PO PRN (12:42)
[2024-07-02] MEDS ORDERED: GABAPENTIN 100 MG CAP PO SCH (14:00)
[2024-07-02] MEDS: GABAPENTIN 100 MG CAP PO SCH (14:26)
[2024-07-02] MEDS: IOHEXOL 350 MG/ML 100ML IJ ONE (14:49)
[2024-07-02] MEDS: SODIUM CHLORIDE 0.9% 1,000 ML IV SCH (14:49)
--- NOTE | 2024-07-02 15:34 | DVH ---
CTA Chest with intravenous contrast INDICATION: R/O PE COMPARISON: CT CT ANGIO CHEST CONTRAST on DOS: 02/22/24 TECHNIQUE: Multidetector spiral CTA of the chest was performed of the chest with intravenous contrast . PULMONARY ANGIOGRAPHY PROTOCOL was utilized using a bolus-tracking technique centered on the main p ulmonary artery. Axial, coronal and sagittal multiplanar and MIP reformats were performed. Radiation Dose : 1. Chest: CTDI volume is 10.2 mGy. Dose-length product is 429 mGy*cm The dose indicators for CT are the volume Computed Tomography (CT) Dose Index (CTDIvol) and the Dose Length Product (DLP), and are measured in units of mGy and mGy-cm, respectively. These indicators are not patient dose, but values generated from the CT scanner acquisition factors. The report includes radiation exposure data for exposures received during this examination. Findings: Pulmonary artery: No pulmonary embolism Lower neck: Normal thyroid. Lungs: No focal consolidation, pleural effusion or pneumothorax. Heart/Vascular Structures: Normal heart size. No pericardial effusion. Lymph Nodes: No adenopathy Pleura: No pleural effusion or significant pneumothorax. Musculoskeletal: No acute osseous abnormality. Soft tissues: Normal. Upper abdomen: Limited portions of the upper abdomen are unremarkable. IMPRESSION: 1. No pulmonary embolism. 2. No acute thoracic finding.
[2024-07-03 03:27] VITALS: BP 105/68; PULSE 120; RESP 18; TEMP 98.4; O2SAT 97
[2024-07-03] MEDS ORDERED: PATIENTS OWN MEDICATION (Alprazolam 1 TAB) PO SCH (10:00)
[2024-07-03] MEDS ORDERED: ALPRAZolam 0.5 MG TAB PO SCH (10:00)
[2024-07-03] MEDS ORDERED: CITALOPRAM HYDROBR 20 MG TAB PO SCH (10:00)
[2024-07-03] MEDS ORDERED: PATIENTS OWN MEDICATION (Escitalopram Oxalate (Lexapro) 1 TAB) PO SCH (10:00)
--- NOTE | 2024-07-04 07:00 | ECG ---
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
== END 2024-07-03 13:35 | disposition left against medical advice (07) | DRG 203 ==
LOC: EDBD 06:18 → ER 06:18 → TELE 10:05 → ER 11:20
PROVIDERS: ATTEND Hospitalist
DX: R07.89 Other chest pain (principal); F10.90 Alcohol use, unspecified, uncomplicated; F41.9 Anxiety disorder, unspecified; Y90.9 Presence of alcohol in blood, level not specified; Z79.2 Long term (current) use of antibiotics; Z79.899 Other long term (current) drug therapy; Z79.1 Long term (current) use of non-steroidal anti-inflammatories (NSAID); Z59.00 Homelessness unspecified
CPT/HCPCS: 36415; 71045; 71275; 80048; 80061; 80320; 83735; 84443; 84484; 85025; 85379; 93005; 96374; 96375; 99291; G0378; J2405

== ENCOUNTER 2024-07-03 17:33 | Emergency (ER) | payer MEDICAID ==
[~2024-07-03] VITALS: Ht 185.4 cm; Wt 83.1 kg
--- NOTE | 2024-07-03 18:29 | ED.PDOC ---
HPI Comments HPI: Poor Historian. 33 y/o M presents with c/o non-radiating, sternal chest pain and anxiety He states chest pain being secondary to anxiety Hx of chest pain and anxiety episodes in the past, with accompanying hospital visits and admission for cardiology consultation Last ED visit for symptoms was yesterday; he endorses on leaving AMA after being given "morphine" then Endorses never being formally Dx with anxiety or placed on any medications for it. Reports being homeless and walking to the ED by himself. Patient came to the hospital yesterday by ambulance. CT angiogram of the chest was performed that shows no PE. Vitals upon arrival to ED: temperature of 98.6F, respiratory rate of 16, SpO2 of 96%RA, pulse rate of 89, blood pressure of 116/75 PMHx: denies PSHx: denies REVIEW OF SYSTEMS: CONSTITUTIONAL: Denies acute: fever, diaphoresis, chills, generalized weakness. HEAD: Denies acute: headache, photophobia Eyes: Denies acute: Double vision, vision loss, eye pain, eye discharge. EARS: Denies acute: tinnitus, hearing loss, ear discharge, ear pain, THROAT: Denies acute: sore throat, swelling, difficulty swallowing , pain with swallowing, change in voice. NECK: Denies acute: neck pain, neck swelling, stiff neck. HEART: Denies acute : palpitations, LUNGS: Denies acute: SOB, wheezing, cough, hemoptysis ABDOMEN: Denies acute: abdominal pain, Nausea, Vomiting, diarrhea, melena , hematemesis, hematochezia SKIN: Denies acute: rash, redness, lesions, itchiness. EXTREMITIES: Denies acute: calf pain, numbness, tingling, weakness, denies pain in extremity. Denies acute: Low back pain. Neuro: Denies acute: focal neurological deficit, motor or sensory focal neurological deficit, tremors, seizure like activity, confusion, dizziness, change in mental status, loss of bowel or bladder function, cauda equina like symptoms. : Denies acute: dysuria, hematuria, flank pain, increase in urinary frequency. PSYCH: Denies acute: hallucination, suicidal ideation, homicidal ideation. PHYSICAL EXAM: General: no acute distress, awake and alert. Head: normocephalic, atraumatic. Neck: supple, trachea is midline, no swelling. Throat: Normal phonation. Eyes:, no erythema, no purulent discharge, no proptosis, no icterus. Heart: regular rate, regular rhythm, no significant murmur appreciated. Lungs: no apparent respiratory distress, Able to speak in full sentences. No wheezing, no rhonchi, no crackles. No stridors Clear to auscultation bilaterally. Abdomen: non tender to palpation, non distended, soft, no guarding, no rebound, + bowel sounds. Neuro: Awake, Alert, oriented to name, self, situation, follows commands GCS=15. Speech is normal. Skin: no petechia, no purpura, no cyanosis, non-pale, not jaundice. Lower extremities: --no - Pitting edema no deformity, no focal swelling, no calf TTP. Makes eye contact. moves all four extremities. Face: no apparent facial droop. Ambulating in the ED independently. Time Seen by MD: 18:20 Primary Care Provider: Unknown Reviewed Notes: Nurses Notes, Medications, Allergies Allergies: Coded Allergies: No Known Drug Allergy (Verified Allergy, Unknown, 08/01/23) Home Meds Active Scripts Amoxicillin & Pot Clavulanate (AUGMENTIN TABLET) 875 Mg Tb, 875 MG PO BID for 10 Days, #20 TAB Prov:DANUTA WALLER PERFECT BINDER OPERATOR 02/26/24 Alprazolam (Alprazolam) 1 Mg Tab, 1 TAB PO DAILY, #10 TAB Prov:FLORECITA CUNNINGHAM PAC 02/21/24 Escitalopram Oxalate (Lexapro) 20 Mg Tab, 1 TAB PO DAILY, #30 TAB Prov:MAGGIE LOPEZ DO 08/05/23 Gabapentin (Gabapentin) 100 Mg Cap, 300 CAP PO TID for 30 Days, #90 CAP 0 Refills Prov:NUBIA PEDRAZA TRIBAL JUDGE 08/02/23 Ibuprofen Micronized (Ibuprofen) 800 Mg Tab, 800 MG PO Q8HP PRN, #20 TAB Prov:JEFFRY YARBROUGH PAC 08/01/23 Information Source: Patient X-Ray, Labs, Meds, VS Vital Signs Date Time Temp Pulse Resp B/P (MAP) Pulse Ox O2 Delivery O2 Flow Rate FiO2 07/03/24 21:22 81 07/03/24 19:59 87 07/03/24 18:27 95 07/03/24 18:00 98.6 89 16 116/75 (89) 96 Lab Test 07/03/24 23:09 07/03/24 21:50 07/03/24 20:09 Range/Units Troponin I High Sensitivity 4 3 L 3 L </=54 ng/L White Blood Count 6.0 # 4.4-10.8 10^3/uL Red Blood Count 4.99 4.5-5.90 10^6/uL Hemoglobin 15.5 13.5-17.5 g/dL Hematocrit 45.8 41.0-53.0 % Mean Corpuscular Volume 91.9 80.0-100.0 fL Mean Corpuscular Hemoglobin 31.1 28.0-32.0 pg Mean Corpuscular Hemoglobin Concent 33.9 32.0-36.0 g/dL Red Cell Distribution Width 13.4 11.8-14.3 % Platelet Count 231 140-450 10^3/uL Mean Platelet Volume 8.6 6.9-10.8 fL Neutrophils (%) (Auto) 55.6 37.0-80.0 % Lymphocytes (%) (Auto) 32.0 10.0-50.0 % Monocytes (%) (Auto) 10.3 0.0-12.0 % Eosinophils (%) (Auto) 1.5 0.0-7.0 % Basophils (%) (Auto) 0.6 0.0-2.0 % Neutrophils # (Auto) 3.3 1.6-8.6 10 ^3/uL Lymphocytes # (Auto) 1.9 0.4-5.4 10 ^3/uL Monocytes # (Auto) 0.6 0-1.3 10 ^3/uL Eosinophils # (Auto) 0.1 0-0.8 10 ^3/uL Basophils # (Auto) 0 0-0.2 10 ^3/uL Nucleated Red Blood Cells 0.2 % D-Dimer, Quantitative 0.77 H 0.0-0.49 mg/L FEU Sodium Level 141 136-145 mmol/L Potassium Level 4.4 3.5-5.1 mmol/L Chloride Level 105 98-107 mmol/L Carbon Dioxide Level 29 20-31 mmol/L Anion Gap 7 5-15 Blood Urea Nitrogen 15 9-23 mg/dL Creatinine 1.15 0.700-1.30 mg/dL Glomerular Filtration Rate Calc 87 >90 mL/min BUN/Creatinine Ratio 13.0 10.0-20.0 Serum Glucose 84 74-106 mg/dL Calcium Level 10.7 H 8.7-10.4 mg/dL Total Bilirubin 0.8 0.2-1.0 mg/dL Aspartate Amino Transferase (AST) 15 13-40 U/L Alanine Aminotransferase (ALT) 17 7-40 U/L Alkaline Phosphatase 55 46-116 U/L Total Protein 7.4 5.7-8.2 g/dL Albumin 4.9 H 3.2-4.8 g/dL [place] [id number] Ph: [phone] DIAGNOSTIC IMAGING Diagnostic Imaging Report : [id number] Signed PATIENT: ANTHONY KENNEYT: [id number] UNIT: [id number] : 1990 LOC: TELE ROOM / BED: [address] [place] [address] AGE / SEX: 33 / M ADM STATUS: ADM IN SERVICE 1349 ORDERING PHYSICIAN: TRISTON KAUFMAN PROCEDURE(s): CTACH - CT ANGIO CHEST CONTRAST REASON: R/O PE ORDER NUMBER(s): [id number], ACCESSION NUMBER(s): [id number] CTA Chest with intravenous contrast INDICATION: R/O PE COMPARISON: CT CT ANGIO CHEST CONTRAST on DOS: 02/22/24 TECHNIQUE: Multidetector spiral CTA of the chest was performed of the chest with intravenous contrast. PULMONARY ANGIOGRAPHY PROTOCOL was utilized using a bolus-tracking technique centered on the main pulmonary artery. Axial, coronal and sagittal multiplanar and MIP reformats were performed. Radiation Dose : 1. Chest: CTDI volume is 10.2 mGy. Dose-length product is 429 mGy*cm The dose indicators for CT are the volume Computed Tomography (CT) Dose Index (CTDIvol) and the Dose Length Product (DLP), and are measured in units of mGy and mGy-cm, respectively. These indicators are not patient dose, but values generated from the CT scanner acquisition factors. The report includes radiation exposure data for exposures received during this examination. Findings: Pulmonary artery: No pulmonary embolism Lower neck: Normal thyroid. Lungs: No focal consolidation, pleural effusion or pneumothorax. Heart/Vascular Structures: Normal heart size. No pericardial effusion. Lymph Nodes: No adenopathy Pleura: No pleural effusion or significant pneumothorax. Musculoskeletal: No acute osseous abnormality. Soft tissues: Normal. Upper abdomen: Limited portions of the upper abdomen are unremarkable. IMPRESSION: 1. No pulmonary embolism. 2. No acute thoracic finding. ATED BY: MARIN JAQUEZ MD DICTATED DATE/TIME: 07/02/241531 SIGNED BY: MARIN JAQUEZ MD SIGNED DATE/TIME: 07/02/241531 CC: Time of 1ST Reevaluation: 18:50 Reevaluation 1ST: Unchanged Patient Education/Counseling: Diagnosis, Treatment Family Education/Counseling: No Family Present Departure 1 Departure Time of Disposition: 23:02 Impression: Primary Impression: Chest pain Disposition: 01 HOME / SELF CARE / HOMELESS Condition: Stable Additional Instructions: Additional discharge instructions: You MUST follow-up with your primary care/family doctor in 1 to 2 days. If you are unable to see your primary care/family doctor, please return to our emergency room for re-assessment and re-evaluation in 1 to 2 days. Return to the emergency room here in our facility or to the nearest ER [facility] if your symptoms change or worsen. CONSULTATIONS: you MUST Follow-up for consultation as soon as possible with: -cardiology in 1-2 days. Please call for appointment You MUST call the consultants office yourself to make an appointment. You may need to arrange that through your insurance and/or your primary/family doctor. If you are unable to see the wedding consultant in 1 to 2 days, you must return to our emergency room (or any other ER of your choice) for re-assessment and re- evaluation. Adequate fluid hydration. Seek psychiatric evaluation for anxiety. Discharged With: Self Critical Care Note Critical Care Time?: No Heart Score Heart Score: Heart Score Response (Comments) Value Age <45 0 Risk Factors No known risk factors 0 Total 0 I personally scribed for SENG HOPKINS DO ([email or web address]) on 07/03/24 at 18:29. Electronically submitted by Brad Pastrana ([email or web address]). I personally scribed for SENG HOPKINS DO ([email or web address]) on 07/03/24 at 18:35. Electronically submitted by Brad Pastrana ([email or web address]). SENG HOPKINS DO Jul 03, 2024 18:29
--- NOTE | 2024-07-03 18:49 | DVH ---
CHEST RADIOGRAPH Indication: cp Technique: Single frontal view of the chest was obtained Comparison: XY CHEST XRAY 1 VIEW on DOS: 07/02/24, XY CHEST PORTABLE on DOS: 02/21/24, XY CHEST PORTABL E on DOS: 02/19/24 FINDINGS: Lines and Tubes: None Lungs: No focal consolidation. Pleura: No effusion. No pneumothorax. Cardiomediastinal contours: Unremarkable Bones: No acute osseous abnormality. IMPRESSION: No acute cardiopulmonary disease.
[2024-07-03 20:33] LABS: Basophils # (auto) 0 10 ^3/uL (0-0.2); Basophils % (auto) 0.6 % (0.0-2.0); Eosinophils # (auto) 0.1 10 ^3/uL (0-0.8); Eosinophils % (auto) 1.5 % (0.0-7.0); Hematocrit 45.8 % (41.0-53.0); Hemoglobin 15.5 g/dL (13.5-17.5); Lymphocytes # (auto) 1.9 10 ^3/uL (0.4-5.4); Mean Corpuscular Hemoglobin 31.1 pg (28.0-32.0); Mean Corpuscular Hgb Conc. 33.9 g/dL (32.0-36.0); Mean Corpuscular Volume 91.9 fL (80.0-100.0); Monocytes # (auto) 0.6 10 ^3/uL (0-1.3); Monocytes % (auto) 10.3 % (0.0-12.0); Neutrophils # (auto) 3.3 10 ^3/uL (1.6-8.6); Neutrophils % (auto) 55.6 % (37.0-80.0); Nucleated Red Blood Cells % 0.2 %; Platelet Count (auto) 231 10^3/uL (140-450); Red Blood Cells 4.99 10^6/uL (4.5-5.90); Red Cell Distribution Width 13.4 % (11.8-14.3)
[2024-07-03 20:55] LABS: Alanine Aminotransferase 17 U/L (7-40); Alkaline Phosphatase 55 U/L (46-116); Anion Gap 7 (5-15); Aspartate Aminotransferase 15 U/L (13-40); Blood Urea Nitrogen 15 mg/dL (9-23); Carbon Dioxide 29 mmol/L (20-31); Chloride 105 mmol/L (98-107); Glucose 84 mg/dL (74-106); Potassium 4.4 mmol/L (3.5-5.1); Sodium 141 mmol/L (136-145)
[2024-07-03 20:56] LABS: Bilirubin, Total 0.8 mg/dL (0.2-1.0); Total Protein 7.4 g/dL (5.7-8.2)
[2024-07-03 20:57] LABS: Albumin 4.9 g/dL (3.2-4.8); Calcium 10.7 mg/dL (8.7-10.4)
[2024-07-04 01:00] VITALS: BP 100/69; PULSE 78; RESP 18; TEMP 98.8; O2SAT 99
[2024-07-04] MEDS: NITROGLYCERIN 0.4 MG SL TAB SL ONE (01:03)
[2024-07-04] MEDS: HYDROcodone-ACET 5/325MG TAB PO ONE (01:13)
--- NOTE | 2024-07-04 07:01 | ECG ---
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
--- NOTE | 2024-07-04 08:48 | ECG ---
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
--- NOTE | 2024-07-04 13:13 | ECG ---
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
== END 2024-07-04 01:15 | disposition home or self-care (01) ==
LOC: ER 17:33
DX: R07.89 Other chest pain (principal); F41.9 Anxiety disorder, unspecified; Z79.899 Other long term (current) drug therapy; Z59.00 Homelessness unspecified
CPT/HCPCS: 36415; 71045; 80053; 84484; 85025; 85379; 93005